=== PATIENT | female | born 1990 | race African-American/Black ===

== ENCOUNTER 2020-02-11 18:13 | Emergency (ER) | payer SELFPAY ==
[~2020-02-11] VITALS: Ht 170.2 cm; Wt 69.0 kg
[2020-02-11] MEDS ORDERED: VISCOUS LIDOCAINE 2% 15 ML UDC PO STA (21:17)
[2020-02-11] MEDS ORDERED: MAGNESIUM/ALUMINUM HYDROXIDE/SIMETHICONE 30ML UDC PO STA (21:17)
[2020-02-11] MEDS ORDERED: DICYCLOMINE 10 MG/5 ML ORAL SYR PO STA (21:17)
[2020-02-11 21:46] LABS: CHLORIDE 107 mEq/L (98-107)
[2020-02-11 21:47] LABS: CLARITY URINE CLOUDY (CLEAR); COLOR URINE YELLOW (YELLOW); KETONES URINE 2+ (NEGATIVE); LEUKOCYTE ESTERASE URINE NEGATIVE (NEGATIVE); NITRITE URINE NEGATIVE (NEGATIVE); OCCULT BLOOD URINE NEGATIVE (NEGATIVE); PH URINE 6.5 (4.5-8.0); PROTEIN URINE 2+ (NEGATIVE); SPECIFIC GRAVITY URINE 1.028 (1.005-1.030); UROBILINOGEN URINE 0.2 E.U./dL (0.2-1.0)
[2020-02-11 21:47] LABS: HEMATOCRIT. 37.9 % (36.0-48.0); HEMOGLOBIN. 12.6 g/dL (12.0-16.0); MEAN CORPUSCULAR HEMOGLOBIN 29.1 pg (28.0-32.0); MEAN CORPUSCULAR VOLUME 87.7 fL (81.0-99.0); MEAN PLATELET VOLUME 9.9 fl (7.4-10.4); PLATELET 225 x1000/uL (130-400); RED BLOOD CELL COUNT 4.32 mill/uL (4.2-5.4); RED CELL DISTRIBUTION WIDTH 15.1 % (11.6-14.6)
[2020-02-11 21:56] LABS: B-HCG QUANTITATIVE 59 mIU/mL (<3)
[2020-02-11 22:25] LABS: PLATELET ESTIMATE NORMAL
[2020-02-12 01:18] VITALS: BP 145/80
== END 2020-02-12 01:19 | disposition home or self-care (01) ==
LOC: ER 18:13
DX: O26.611 Liver and biliary tract disorders in pregnancy, first trimester (principal); K80.50 Calculus of bile duct without cholangitis or cholecystitis without obstruction; O26.891 Other specified pregnancy related conditions, first trimester; I10 Essential (primary) hypertension; Z3A.01 Less than 8 weeks gestation of pregnancy
CPT/HCPCS: 36415; 76705; 76801; 80053; 81003; 81025; 84702; 85025; 99284